=== PATIENT | female | born 1965 | race Caucasian/White ===

== ENCOUNTER → 2017-10-12 | Outpatient (CLI) | payer OTHER ==
[2017-10-12 16:13] LABS: Free Thyroxine 0.89 ng/dL (0.70-1.60); Thyroid Stimulating Hormone 2.26 uIU/mL (0.360-4.800)
== END | disposition home or self-care (01) ==
LOC: LAB EV 14:54
PROVIDERS: Physician Assistant Surgical
DX: R53.83 Other fatigue (principal)
CPT/HCPCS: 84439; 84443; 84481

== ENCOUNTER → 2020-03-18 | Outpatient (CLI) | payer OTHER ==
[2020-03-18 13:45] LABS: BASOPHILS ABSOLUTE AUTO 0.07 K/mm3 (0.00-0.23); BASOPHILS PERCENT AUTO 1 % (0-2); EOSINOPHILS ABSOLUTE AUTO 0.33 K/mm3 (0.00-0.68); EOSINOPHILS PERCENT AUTO 6 % (0-6); Hematocrit 43.5 % (33.0-51.0); IMMATURE GRAN ABSOLUTE AUTO 0.01 K/mm3 (0.00-0.10); IMMATURE GRAN PERCENT AUTO 0 % (0-1); LYMPHOCYTES ABSOLUTE AUTO 0.84 K/mm3 (0.84-5.20); LYMPHOCYTES PERCENT AUTO 15 % (21-46); MONOCYTES ABSOLUTE AUTO 0.49 K/mm3 (0.16-1.47); MONOCYTES PERCENT AUTO 8 % (4-13); Mean Corpuscular HGB 30.3 pg (26.0-34.0); Mean Corpuscular HGB Conc 32.2 g/dL (31.5-36.5); Mean Corpuscular Volume 94 fL (80-100); Mean Platelet Volume 10.6 fL (9.1-12.4); NEUTROPHILS ABSOLUTE AUTO 4.07 K/mm3 (1.96-9.15); NEUTROPHILS PERCENT AUTO 70 % (41-73); Platelet Count 245 K/mm3 (150-400); RDW Coefficient Variation 12.6 % (11.7-14.2); RDW Standard Deviation 43.8 fL (35.1-46.3); Red Blood Cell Count 4.62 M/mm3 (3.80-5.20); White Blood Cell Count 5.81 K/mm3 (4.00-11.30)
[2020-03-18 14:12] LABS: Alanine Aminotransfer (ALT/SGP 26 U/L (12-78); Albumin, Blood 3.6 g/dL (3.4-5.0); Alk Phos 64 U/L (50-136); Anion Gap 4 mmol/L (6-16); Aspartate Aminotrans (AST/SGOT 18 U/L (12-37); Bilirubin, Total 0.8 mg/dL (0.1-1.0); Blood Urea Nitrogen 13 mg/dL (8-24); Bun/Creatinine Ratio 16.4 (12.0-20.0); CHOL/HDL RATIO 3.1; CO2, Blood 26 mmol/L (21-32); Calcium, Blood 8.3 mg/dL (8.5-10.1); Chloride, Blood 109 mmol/L (98-108); Cholesterol 149 mg/dL (50-200); Creatinine, Blood 0.79 mg/dL (0.40-1.00); Globulin, Blood 3.5 g/dL (2.2-4.0); Glomerular Filtration Rate >60 (60-); Glucose, Blood 91 mg/dL (70-99); HDL Cholesterol 48 mg/dL (>39); LDL/HDL RATIO 1.9; Low Density Lipoprotein Chol 90 mg/dL (0-110); Potassium, Blood 4.1 mmol/L (3.5-5.5); Sodium, Blood 139 mmol/L (136-145); Total Protein, Blood 7.1 g/dL (6.4-8.2); Triglycerides 54 mg/dL (30-160); Very Low Density Lipoprot Chol 10 mg/dL (6-32)
== END | disposition home or self-care (01) ==
LOC: LAB SHORT 12:18 → LAB 12:18
PROVIDERS: Physician Assistant
DX: Z13.6 Encounter for screening for cardiovascular disorders (principal)
CPT/HCPCS: 80053; 80061; 85025

== ENCOUNTER 2022-10-06 08:01 | Day surgery (SDC) | payer OTHER ==
[~2022-10-06] VITALS: Ht 167.6 cm; Wt 63.3 kg
[~2022-10-06 08:01] MED LIST: BUPROPION HCL200 M1 PO; LEVSOD25 PO
--- NOTE | 2022-10-06 08:39 | NUR ---
10/06/22 0839 Marika Subramanian IN AT 0828 FAM IN AT 0846
== END 2022-10-06 09:52 | disposition home or self-care (01) ==
LOC: ORSCSDS 08:01
PROVIDERS: Ophthalmology
PROC: 08DJ3ZZ Extraction of Right Lens, Percutaneous Approach (ICD-10-PCS; principal; 2022-10-06 09:30)
DX: H25.11 Age-related nuclear cataract, right eye (principal); Z96.1 Presence of intraocular lens; F32.A Depression, unspecified; Z79.899 Other long term (current) drug therapy
CPT/HCPCS: J2001; J2250; J3010; J3301; J7040; V2632

== ENCOUNTER → 2022-11-30 | Outpatient (CLI) | payer OTHER | LOC: LAB SHORT 15:11 → PLD 15:11 | DX: D48.5 Neoplasm of uncertain behavior of skin (principal) | CPT/HCPCS: 88305 ==

== ENCOUNTER → 2023-02-23 | Outpatient (CLI) | payer OTHER | LOC: LAB 14:45 → LAB SHORT 14:45 | DX: R07.0 Pain in throat (principal) | CPT/HCPCS: 87081 ==